=== PATIENT | male | born 1960 | race Caucasian/White ===

== ENCOUNTER 2019-01-02 11:31 | Emergency (ER) | payer BC, OTHER ==
--- OUTSIDE RECORDS SUMMARY | 2019-01-02 12:19 | XMS REPORT | Continuity of Care Document ---
:1960 External Reference #:[id number] Author Name Doc Nguyen DO Address [address] [place] [id number] Care Team Providers Name Role Phone Bertram Torres MD - Orthopaedic Care Team Information Lead Caster [phone] Surgery Problems Active Problems Provider Date Acute gastritis Ildefonso Liao DO Onset: 09/11/2011 Gastroenteritis Ildefonso Liao DO Onset: 12/16/2010 Adjustment disorder with mixed emotional Ildefonso Liao DO Onset: 2010 features Atrial fibrillation Doc Nguyen DO Onset: 01/28/2017 Social History Type Date Description Comments Sex Unknown Tobacco Use Start: Unknown Currently smokes 1-5 Cigarettes Daily Smoking Status Reviewed: 06/01/18 Currently smokes 1-5 Cigarettes Daily ETOH Use Consumes 2 glasses of wine per day Tobacco Use Start: Unknown Patient is a current 1-2 cigars, quit smoker, smokes every day cigarettes Allergies, Adverse Reactions, Alerts Description No Known Drug Allergies Medications Active Medications SIG Qnty Indications Ordering Date Provider Famotidine 1 by mouth every 90tabs K21.9 Doc Nguyen, 12/08/2018 20mg Tablets day DO Atorvastatin Calcium take 1 tablet 30tabs Doc Nguyen, 05/11/2017 20mg once daily DO Tablets Viagra take 1 tablet 10tabs Keshawn, 07/03/2015 100mg Tablets daily as needed DO Ildefonso as directed Acetaminophen Extra 2 PO Q4H prn 50tabs Deshaun Bravo, Strength 500mg Tablets Amiodarone HCL 1 PO Q D I48.91 Unknown 200mg Tablets Amitriptyline HCL [address] Garcia 25mg Quan Tablets Budesonide 1 po tid Unknown 3mg Caps DR Clayton Immunizations CPT Code Status Date Vaccine Reaction Lot # [id number] Given 12/20/2017 Flu Vaccine NOS Given at [facility], [address], [place], [place] [address] Given 12/28/2016 Afluria Imunization 34763 Given 02/22/2009 Administration Swine Flu Vaccine [id number] Refused 10/15/2017 Tdap (Adacel) Ages 7 And Above Only [id number] Refused 10/14/2017 Flu Vaccine NOS will get at pharmacy [address]09 Refused 10/14/2017 Shingrix (Shingles) Zoster Vaccine will get at pharmacy HZV, Recombinant, Subunit, Adj Vital Signs Date Vital Result Comment 12/08/2018 3:02pm Weight 155.00 lb Heart Rate 60 /min BP Systolic 152 mmHg BP Diastolic 80 mmHg BP Systolic Recheck 144 mmHg BP Diastolic Recheck 82 mmHg Respiratory Rate 17 /min Height 64.5 inches 5'4.50" BMI (Body Mass Index) 26.2 kg/m2 06/01/2018 2:50pm Body Temperature 98.9 F Weight 147.00 lb Heart Rate 76 /min BP Systolic 116 mmHg BP Diastolic 66 mmHg Respiratory Rate 18 /min Height 64.5 inches 5'4.50" 07/29/17 O2 % BldC Oximetry 94 % BMI (Body Mass Index) 24.8 kg/m2 Results Description No Information Available Procedures Description No Information Available Medical Devices Description No Information Available Encounters Description No Information Available Assessments Date Code Description Provider 12/08/2018 I48.91 Unspecified atrial fibrillation Doc Nguyen DO 12/08/2018 M16.0 Bilateral primary osteoarthritis of hip Doc Nguyen DO 12/08/2018 F17.200 Nicotine dependence, unspecified, uncomplicated Doc Nguyen DO 12/08/2018 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 Pt states that he had a cardioversion in 05/26. Improved at the present time. Obstetrics Technician recommended the patient to stop the Amiodarone, but he has not done this and take the medication until he completes the prescription. I recommended the patient to follow up with the food trades assistants as scheduled. We will continue to monitor.Follow up:Blood work soon. Follow up with me in 6 months for an Annual physical exam.M16.0 Bilateral primary osteoarthritis of hipF17.200 Nicotine dependence, unspecified, siyochohirgzoY17.82 Eosinophilic ehqkcycA55.2 Mixed hyperlipidemiaNew Labs:CBC with Auto Diff-fcmg, Ordered: 12/08/18Basic (BMP), Ordered: 12/08/18TSH, Ordered : 12/08/18Lipid Treatment, Ordered: 12/08/18Comments:Condition reviewed with the patient in detail. LDL is elevated at 108. Advised the patient to continue Atorvastatin. Encouraged the patient to decrease the total amount of fat. Choose lean meats, fatfree or 1% fat milk, and low-fat dairy products such as yogurt and cheese. Encouraged the patient toreplace unhealthy fats with healthy fats. Encouraged the patient to eat foods high in fiber. We willrecheck it during next blood draw.K21.9 Gastro-esophageal reflux disease without esophagitisNew Medication:Famotidine 20 mg - 1 by mouth every dayComments: Changed Ranitidine to Famotidine due to recall. Encouraged the patient to avoid spicy, greasy food, Juices containing citrus, sauce, chocolates, alcohol. Advised the patient to eat small multiple meals. Advised the patient to limit caffeine and carbonated beverages. Advised not to eat three hours prior to sleeping. Encouraged the patient to elevate the head and sleep during night.Advised to maintain a healthy weight.R35.0 Frequency of uyjhqztsalzM80.26 Body mass index (BMI) 26.0-26.9, adultComments:The patient's BMI is at 26.2. We will continue to monitor weight and BMI periodically. Functional Status Description No Information Available Mental Status Description No Information Available Referrals Description No Information Available
--- OUTSIDE RECORDS SUMMARY | 2019-01-02 12:19 | XMS REPORT | Continuity of Care Document ---
:1960 External Reference #:[id number] Author Name Doc Nguyen DO Address [address] [place] [id number] Care Team Providers Name Role Phone Bertram Torres MD - Orthopaedic Care Team Information Uke Driver Surgery Problems Active Problems Provider Date Acute [...] Acetaminophen Extra 2 PO Q4H prn 50tabs eDshaun Bravo, Strength 500mg Tablets Amiodarone HCL 1 PO Q D I48.91 Unknown 200mg Tablets Amitriptyline HCL [address] Garcia 25mg Quan Tablets Budesonide 1 po tid Unknown 3mg Caps DR Clayton Immunizations CPT Code Status Date Vaccine Reaction Lot # [id number] Given 12/20/2017 Flu Vaccine NOS Given at [facility], [address], [place] [address] Given 12/28/2016 Afluria Imunization 32404 Given 02/22/2009 Administration Swine Flu Vaccine [id number] Refused 10/15/2017 Tdap (Adacel) Ages 7 And Above Only [id number] Refused 10/14/2017 Flu Vaccine NOS will get at pharmacy [address]693 Refused 10/14/2017 Shingrix (Shingles) Zoster Vaccine will [...] 3:30 pm - Doc Nguyen, DO at [facility]12/30/2018 8:45 am - Schedule, Laboratory at [facility]12/08/2018 - Doc Nguyen, DOI48.91 Unspecified atrial fibrillationComments:Condition reviewed in detail with the patient. Pt states that he had a cardioversion in 05/26. Improved at the present time. Jigsawyer recommended the patient to stop the Amiodarone, but he has not done this and take the medication until he completes the prescription. I recommended the patient to follow up with the private advisor as scheduled. We will continue to monitor.Follow up:Blood work soon. Follow up with me in 6 months for an Annual physical exam.M16.0 Bilateral primary osteoarthritis of hipF17.200 Nicotine dependence, unspecified, lukedpsvrqiiaO17.82 Eosinophilic tkwhosyY84.2 Mixed hyperlipidemiaNew Labs:CBC with Auto Diff-fcmg, Ordered: [...] to maintain a healthy weight.R35.0 Frequency of mnvexztmbimT19.26 Body mass index (BMI) 26.0-26.9, adultComments:The patient's BMI is at 26.2. We will continue to monitor weight and BMI periodically. Functional Status Description No Information Available Mental Status Description No Information Available Referrals Description No Information Available
[2019-01-02 12:29] VITALS: BP 128/64
--- NOTE | 2019-01-02 12:41 | UC ---
Throat Pain/Nasal Flo HPI - HPI Summary HPI Summary: Ill for 2 weeks with worsening sinus pressure and congestion. - History of Current Complaint Chief Complaint: UCRespiratory Stated Complaint: SINUS Time Seen by Provider: 01/02/19 12:23 Hx Obtained From: Patient Onset/Duration: Gradual Onset Severity: Moderate Pain Intensity: 8 Cough: None Associated Signs & Symptoms: Positive: Sinus Discomfort, Nasal Discharge - Allergies/Home Medications Allergies/Adverse Reactions: Allergies Allergy/AdvReac Type Severity Reaction Status Date / Time No Known Allergies Allergy Verified 09/04/13 20:23 Home Medications: Home Medications Amiodarone TAB* [Cordarone Tab*] 1 tab DAILY 01/02/19 [History Confirmed ] Amitriptyline TAB* [Elavil TAB*] 10 mg PO BEDTIME 01/02/19 [History Confirmed ] Atorvastatin* [Lipitor 10 MG*] 1 tab QAM 01/02/19 [History Confirmed 01/02/19] Budesonide [Budesonide ER] 1 tab DAILY 01/02/19 [History Confirmed 01/02/19] Omeprazole 1 tab DAILY 01/02/19 [History Confirmed 01/02/19] PMH/Surg Hx/FS Hx/Imm Hx Previously Healthy: Yes Cardiovascular History: Atrial Fibrillation GI/ History: Ulcer - Surgical History Surgical History: Yes Surgery Procedure, Year, and Place: NOTHING RECENT - Family History Known Family History: Positive: Non-Contributory - Social History Alcohol Use: Occasionally Substance Use Type: None Smoking Status (MU): Heavy Every Day Tobacco Smoker Amount Used/How Often: 1/2 PPD Length of Time of Smoking/Using Tobacco: 25 YRS Household Exposure Type: Cigarettes Review of Systems All Other Systems Reviewed And Are Negative: Yes ENT: Positive: Nasal Discharge, Sinus Congestion, Sinus Pain/Tenderness Is Patient Immunocompromised?: No Physical Exam Triage Information Reviewed: Yes Appearance: Well-Appearing, No Pain Distress, Well-Nourished Vital Signs: Initial Vital Signs Temp 98.1 F 01/02/19 12:26 Pulse 66 01/02/19 12:26 Resp 16 01/02/19 12:26 BP 128/64 01/02/19 12:26 Pulse Ox 100 01/02/19 12:26 Vital Signs Reviewed: Yes Eyes: Positive: Conjunctiva Clear ENT: Positive: Pharynx normal - Yellow post nasal drainage, Nasal congestion, Nasal drainage - yellow nasal coryza and swollen inflamed turbinates worse on the left, TMs normal, Sinus tenderness - bilateral frontal sinus tenderness, Uvula midline Neck: Positive: Supple, Nontender, No Lymphadenopathy Respiratory: Positive: Lungs clear, Normal breath sounds, No respiratory distress, No accessory muscle use Cardiovascular: Positive: RRR, No Murmur, Pulses Normal, Brisk Capillary Refill Musculoskeletal Exam: Normal Neurological Exam: Normal Psychological Exam: Normal Skin Exam: Normal Throat Pain/Nasal Course/Dx - Course Course Of Treatment: Will treat with Augmentin. Follow up with PCP in 5-6 days if no improvement. - Differential Dx/Diagnosis Provider Diagnosis: Sinusitis Discharge ED - Sign-Out/Discharge Documenting (check all that apply): Patient Departure All imaging exams completed and their final reports reviewed: No Studies - Discharge Plan Condition: Fair Disposition: HOME Prescriptions: Amoxicillin/Clavulanate TAB* [Augmentin TAB 875*] 875 mg PO BID 10 Days #20 tab Patient Education Materials: Sinusitis (ED) Referrals: Doc Nguyen DO [Primary Care Provider] - Additional Instructions: Increase fluids,take the Augmentin with food. Definite follow up with your doctor in 5-6 days if no improvement. - Billing Disposition and Condition Condition: FAIR Disposition: Home
== END 2019-01-02 12:46 | disposition home or self-care (01) ==
LOC: UCCORT 11:31
DX: J32.9 Chronic sinusitis, unspecified (principal); F17.210 Nicotine dependence, cigarettes, uncomplicated
CPT/HCPCS: 99202; G0463